=== PATIENT | male | born 2000 | race Caucasian/White ===

== ENCOUNTER 2021-08-02 10:50 | Emergency (ER) | payer OTHER, SELFPAY ==
--- NOTE | ~2021-08-02 | XR_ITS ---
EXAMINATION: XR ribs RT 2V DATE: 08/02/2021 11:11 INDICATION: Posterior lateral right rib pain post fall TECHNIQUE: A frontal inspiratory view of the chest and 3 views of the right ribs were obtained. 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 12 paired rib-bearing thoracic segments. No rib frac tures identified. Right lung and visualized portions of the left lung are clear with no focal airspac e opacities, pulmonary edema, pleural effusion or pneumothorax. Cardiomediastinal silhouette is nayely l. IMPRESSION: 1. No rib fracture or acute cardiopulmonary disease. Reviewed, dictated and finalized at location B.
[2021-08-02 10:58] VITALS: BP 133/77; PULSE 67; RESP 16; TEMP 36.9; O2SAT 100
--- NOTE | 2021-08-02 11:38 | ED.GENADULT ---
HPI - General Adult General Chief complaint: Back Pain/Injury Stated complaint: rib pain Time Seen by Provider: 08/02/21 11:38 Source: patient, RN notes reviewed and old records reviewed Mode of arrival: ambulatory Limitations: no limitations History of Present Illness HPI narrative: 21-year-old male who presents to [facility] care with complaints of hitting his right posterior rib area on boat seat about 2 weeks ago and continues to have pain to area especially when he coughs or sneezes and at times with deep breating. He states that he initally had some superficial lacerations to the area which have healed, no bruising is noted. Patient denies any shortness of breath with SAO2 100% on room air. MD complaint: right posterior rib area pain Related Data Allergies Allergy/AdvReac Type Severity Reaction Status Date / Time No Known Allergies Allergy Verified 08/02/21 11:18 Review of Systems Review of Systems: CONSTITUTIONAL: Denies fever, chills, or sweats. EYES: Denies visual changes, redness, or discharge. ENT: Denies rhinorrhea, congestion, sore throat, or otalgia. CARDIOVASCULAR: right posterior lateral chest pain, no palpitations, or edema. RESPIRATORY: Denies cough or dyspnea. GASTROINTESTINAL: Denies abdominal pain, nausea, vomiting, or diarrhea. GENITOURINARY: Denies dysuria or hematuria. SKIN: Denies rash or itching. MUSCULOSKELETAL: right posterior lateral back pain, joint pain, or myalgia. NEUROLOGIC: Denies headache, numbness, or weakness. PSYCHIATRIC: Denies anxiety or depression. [facility] Social History Social History (Updated 08/03/21 @ 21:09 by Yun Key NP) Smoking status: Current every day smoker Tobacco type: e-cigarettes/vaping Alcohol intake: current Alcohol use details: social Substance use type: does not use Living arrangements: with family Gender identity (if verbalized by the patient): Male Comments At time of signature, agree with nursing past medical, surgical, social and family history. There is no relevant family history pertinent to the presenting complaint Exam Narrative: GENERAL: Well-appearing, well-nourished, and in no acute distress. HEAD: Normocephalic, atraumatic EYES: PERRLA and EOMI. ENT: Nares clear, no rhinorrhea or epistaxis. Mucous membranes moist.TM's normal with good light reflex. Throat pink with no lesions or exudates or tonsil swelling NECK: Supple. no lymphadenopathy CHEST: Clear to auscultation. No respiratory distress. Palpable tenderness to right posterior lateral chest region, no tachypnea, SAO2 100% on room air HEART: Regular rate and rhythm. No murmur heard. Normal peripheral pulses. ABDOMEN: Soft, nontender, nondistended, normal active bowel sounds. EXTREMITIES: Normal range of motion. No edema. SKIN: Warm, dry, no rash.healing scabbed abrasion to right lateral posterior chest NEURO: No focal deficits. Alert and oriented x3. Course Course Level of Care: Express Care Visit Vital Signs Vital signs: Vital Signs Temperature 36.9 C 08/02/21 10:58 Pulse Rate 67 08/02/21 10:58 Respiratory Rate 16 08/02/21 10:58 Blood Pressure 133/77 08/02/21 10:58 Pulse Oximetry 100 08/02/21 10:58 Oxygen Delivery Room Air 08/02/21 10:58 Temperature 36.9 C 08/02/21 10:58 Pulse Rate 67 08/02/21 10:58 Respiratory Rate 16 08/02/21 10:58 Blood Pressure 133/77 08/02/21 10:58 Pulse Oximetry 100 08/02/21 10:58 Oxygen Delivery Room Air 08/02/21 10:58 Medical Decision Making Differential Diagnosis Differential Diagnosis: rib fracture, contusion to ribs, chest wall contusion, pain to right posterior lateral chest Medical Records Medical records reviewed: Yes I reviewed the external patient's medical records. Vital Signs Vital Signs: Vital Signs Temperature 36.9 C 08/02/21 10:58 Pulse Rate 67 08/02/21 10:58 Respiratory Rate 16 08/02/21 10:58 Blood Pressure 133/77 08/02/21 10:58 Pulse Oximetry 100 08/02/21 10
--- NOTE | 2021-08-02 11:49 | ED.BACK ---
HPI - Back Pain/Injury General Chief Complaint: Back Pain/Injury Stated Complaint: rib pain Time Seen by Provider: 08/02/21 11:38 Source: patient, RN notes reviewed and old records reviewed Limitations: no limitations History of Present Illness HPI Narrative: 21-year-old male presents to [facility] [place] [facility] care Related Data Allergies Allergy/AdvReac Type Severity Reaction Status Date / Time No Known Allergies Allergy Verified 08/02/21 11:18 Exam Narrative: GENERAL: Well-appearing, well-nourished, and in no acute distress. HEAD: Normocephalic, atraumatic. EYES: PERRLA and EOMI. ENT: Nares clear, no rhinorrhea or epistaxis. Mucous membranes moist. NECK: Supple. CHEST: Clear to auscultation. No respiratory distress. HEART: Regular rate and rhythm. No murmur heard. Normal peripheral pulses. ABDOMEN: Soft, nontender, nondistended, normal active bowel sounds. EXTREMITIES: Normal range of motion. No edema. SKIN: Warm, dry, no rash. NEURO: No focal deficits. Alert and oriented x3. Course Vital Signs Vital signs: Vital Signs Temperature 36.9 C 08/02/21 10:58 Pulse Rate 67 08/02/21 10:58 Respiratory Rate 16 08/02/21 10:58 Blood Pressure 133/77 08/02/21 10:58 Pulse Oximetry 100 08/02/21 10:58 Oxygen Delivery Room Air 08/02/21 10:58 Temperature 36.9 C 08/02/21 10:58 Pulse Rate 67 08/02/21 10:58 Respiratory Rate 16 08/02/21 10:58 Blood Pressure 133/77 08/02/21 10:58 Pulse Oximetry 100 08/02/21 10:58 Oxygen Delivery Room Air 08/02/21 10:58 Discharge Plan Discharge Clinical Impression: Contusion of ribs Patient Disposition: Home, Self-Care Condition: Stable Instructions: Rib Contusion (ED) Additional Instructions: Tylenol for lesser pain Ibuprofen regularly for the next 2-3 days for the inflammation and pain Follow-up with PCP if further problems or concerns Ice to the area 20-30 minutes 4-6 times a day Steroids as prescribed complete all doses If your symptoms persist, change or worsen significantly before you can contact your personal physician then please, without delay, go to the emergency department for further evaluation. Follow-up with PCP in 7-10 days or sooner if needed Prescriptions: New prednisone 20 mg tablet 20 mg PO BID 5 Days Qty: 10 0RF Follow-up/Referrals: PHYSICIAN,LANDING WORKER [Primary Care Provider] - Time of Disposition: 11:54
== END 2021-08-02 12:00 | disposition home or self-care (01) ==
PROVIDERS: Emergency Provider Registered Nurse
DX: S20.211A Contusion of right front wall of thorax, initial encounter (principal); T14.90XA Injury, unspecified, initial encounter; F17.290 Nicotine dependence, other tobacco product, uncomplicated
CPT/HCPCS: 71100; 99213; G0463